=== PATIENT | male | born 1965 | race Caucasian/White ===

== ENCOUNTER → 2019-03-18 05:59 | Day surgery (SDC) | payer OTHER ==
[~2019-03-18 05:59] MED LIST: Buffered Lidocaine 1% SYRIN* 1 ML/SYRINGE INTRADERM ONE; Bupivacaine 0.25% SDV PF* 10 ML VIAL INJ ONE; Lactated Ringers 1000 ML Bag* 1,000 ML IV SCH; Midazolam* 1 MG/ML 5 ML VIAL (5 MG) ONE; Naloxone* 0.4 MG/ML 1 ML VIAL IV PRN; Propofol* 10 MG/ML 20 ML BTL ONE; ceFAZolin 2 GM in NS PREMIX(*) 2 GM/100 ML BAG IVPB ONE; fentaNYL* 50 MCG/ML 2 ML VIAL (100 MCG VIAL) ONE
[2019-03-18 09:29] VITALS: BP 118/86
--- NOTE | 2019-03-18 10:21 | OP ---
CC: Dr. Irene Martinez * DATE OF OPERATION: 03/18/19 - SDS DATE OF : 67 SURGEON: Otf Marie MD. PRE-OP DIAGNOSIS: Colon cancer. POST-OP DIAGNOSIS: Colon cancer. OPERATIVE PROCEDURE: Placement of PowerPort in the left subclavian vein. INDICATIONS: Colon/rectal cancer. Risks of PowerPort included, but not limited to bleeding, infection, and pneumo-thorax were explained to the patient , who seemed to understand and agreed to the procedure and all questions were answered. DESCRIPTION OF PROCEDURE: The patient was taken to the operating room and placed supine. Preoperative antibiotics were given. Sedation was given by the anesthesiologist. Left chest was prepped and draped in sterile fashion. Time- out was performed by indicating correct patient, correct procedure. He was placed in the Trendelenburg position. The skin was anesthetized below the clavicle. A needle was placed to the left subclavian vein and the wire was advanced using Seldinger technique through the needle towards the superior vena cava. The needle was removed. The tract was dilated. A sheath was placed over the wire, the wire was removed. The PowerPort catheter was advanced through the sheath. The sheath was removed. The catheter was tunneled under the skin to the subcutaneous pocket on the left chest and connected to the PowerPort. This easily aspirated blood and flushed with heparinized saline. The pocket was closed in layers using 3-0 Monocryl and glue on the skin. The patient tolerated the procedure well. Fluoroscopy confirmed placement. Chest x- ray was ordered for the recovery room. [id number]/[facility] #: [id number] [facility]tto
== END | disposition home or self-care (01) ==
LOC: OR 05:59
PROVIDERS: ATTEND Surgery
DX: C20 Malignant neoplasm of rectum (principal); Z87.891 Personal history of nicotine dependence
CPT/HCPCS: 71045; 76000; C1788; J0690; J1642; J2250; J2704; J3010; J3490